=== PATIENT | female | born 1990 | race Caucasian/White ===

== ENCOUNTER 2021-01-23 17:48 | Emergency (ER) | payer OTHER ==
[~2021-01-23] VITALS: Ht 154.9 cm; Wt 99.8 kg
[2021-01-23 18:54] VITALS: BP 128/75
--- NOTE | 2021-01-23 19:08 | NUR ---
TENT 2.
--- NOTE | 2021-01-23 19:08 | NUR ---
BIB SELF C/O COUGH, CHEST PRESSURE , RUNNY NOSE X 5 DAYS. SEEN AT [facility] FOR TONSIL SWELLING X 4 DAYS AGO & GOT AMOXICILLIN, PREDNISONE AND WENT BACK TO [facility] AGAIN YESTERDAY FOR CONGESTION & GOT NAPROXEN. PMH: DENIES
[2021-01-23] MEDS ORDERED: ALBU0.0912 INH (23:05)
[2021-01-23] MEDS ORDERED: PRED20TA5 PO (23:05)
--- NOTE | 2021-01-23 23:09 | NUR ---
Patient discharged with v/s stable. Written and verbal after care instructions given and explained. Patient alert, oriented and verbalized understanding of instructions. Ambulatory with steady gait. All questions addressed prior to discharge. ID band removed. Patient advised to follow up with PMD. Rx of PREDNISONE AND ALBUTEROL given. Patient educated on indication of medication including possible reaction and side effects. Opportunity to ask questions provided and answered.
== END 2021-01-23 23:09 | disposition home or self-care (01) ==
LOC: MED 17:48
DX: J20.9 Acute bronchitis, unspecified (principal); F17.200 Nicotine dependence, unspecified, uncomplicated; F12.90 Cannabis use, unspecified, uncomplicated; Z71.6 Tobacco abuse counseling; Z79.899 Other long term (current) drug therapy; Z98.890 Other specified postprocedural states
CPT/HCPCS: 71045; 99283; Q0092

== ENCOUNTER 2022-08-22 16:47 | Emergency (ER) | payer OTHER ==
[~2022-08-22 16:47] MED LIST: ALBU0.0912 INH; PRED20TA5 PO
--- NOTE | 2022-08-22 16:56 | NUR ---
CALLED TO TRIAGE NO RESPONSE
--- NOTE | 2022-08-22 17:10 | NUR ---
ATTEMPTED TO CALL FOR TRIAGE NOT FOUND
--- NOTE | 2022-08-22 17:20 | NUR ---
PATIENT LEFT WITHOUT BEING SEEN BY DR. KENDRICK. NO FURTHER CARE PROVIDED FOR PATIENT.
[2022-08-23] MEDS ORDERED: NAPR-54 PO (03:15)
[2022-08-23] MEDS ORDERED: ACET-8905 PO (03:15)
== END 2022-08-22 16:56 | disposition left against medical advice (07) ==
LOC: MED 16:47
DX: J34.89 Other specified disorders of nose and nasal sinuses (principal); Z53.21 Procedure and treatment not carried out due to patient leaving prior to being seen by health care provider

== ENCOUNTER 2022-08-22 18:57 | Emergency (ER) | payer OTHER ==
[~2022-08-22] VITALS: Ht 154.9 cm; Wt 105.7 kg
[2022-08-22 20:02] VITALS: BP 129/77
[2022-08-22 20:05] VITALS: BP 129/77
--- NOTE | 2022-08-23 02:46 | NUR ---
Patient taken to bed 8.
[2022-08-23] MEDS ORDERED: HYDROcodone/APAP 5/325 MG 1 TAB TAB PO ONE (03:00)
[2022-08-23] MEDS ORDERED: KETOROLAC 30 MG/ML VIAL IM ONE (03:00)
[2022-08-23] MEDS ORDERED: ACET-8905 PO (03:15)
[2022-08-23] MEDS ORDERED: NAPR-54 PO (03:15)
--- NOTE | 2022-08-23 03:24 | NUR ---
Patient discharged with v/s stable. Written and verbal after care instructions given and explained. Patient verbalized understanding. Ambulatory with steady gait. All questions addressed prior to discharge. Advised to follow up with PMD.
== END 2022-08-23 03:24 | disposition home or self-care (01) ==
LOC: MED 18:57
DX: S02.2XXA Fracture of nasal bones, initial encounter for closed fracture (principal); S09.90XA Unspecified injury of head, initial encounter; Z79.899 Other long term (current) drug therapy; W01.198A Fall on same level from slipping, tripping and stumbling with subsequent striking against other object, initial encounter; Y92.89 Other specified places as the place of occurrence of the external cause; Y93.89 Activity, other specified; Y99.8 Other external cause status
CPT/HCPCS: 70450; 70486; 72125; 96372; 99285; J1885